=== PATIENT | female | born 2000 | race Caucasian/White ===

== ENCOUNTER 2023-01-13 15:05 | Inpatient (IN) | payer BC ==
[~2023-01-13] VITALS: Ht 167.6 cm; Wt 97.7 kg
[2023-01-15] VITALS (8 sets, daily range): BP systolic 115–133; BP diastolic 63–77; PULSE 81–116; TEMP 98.6
--- NOTE | 2023-01-15 19:30 | NUR ---
PT ABULATED TO ROOM WITH . APPEARS COMFORTABLE, PLEASANT BUT ANXIOUS. PT FAMILIARIZED WITH ROOM, WATER PROVIDED AND ALL QUESTIONS ANSWERED AT THE BEDSIDE BY THIS RN. PT HAS NO COMPLAINTS OF PN AT THIS TIME, ADMITS TO BEING NERVOUS BUT EXCITED. NO VAGINAL BLEEDING OR LEAKING OF FLUIDS. ASSESESMENT AND CONSENTS SIGNED AT THIS TIME. DICUSSION OF PLAN OF CARE WITH PT AND COMPLETED. CALL LIGHT LEFT WITHIN REACH.
--- NOTE | 2023-01-15 19:45 | NUR ---
PT DISCUSSING PLAN AND REQUESTS TO KEEP PLACENTA TO ENCAPSULATE. THIS RN EDUCATED PT ABOUT HER GBS POSTIVE RESULT AND THE POSSIBILITY OF THE PLACENTA BEING INFECTED AND ENCOURAGED HER TO SPEAK TO HER DELIVERY DOCTOR FOR FURTHER TEACHING TO MAKE A WELL EDUCATED DECISION ON CONSUMPTION.
[2023-01-15] MEDS ORDERED: PREDNISONE20 MG PO (20:37)
[2023-01-15] MEDS ORDERED: KUVAN PO (20:40)
[2023-01-15 21:06] LABS: BASO % 0.2 % (0.0-2.0); EOS % 0.1 % (0.0-4.0); GRAN # 9.8 K/mm3 (1.4-6.5); GRAN % 81.1 % (42.2-75.2); HEMATOCRIT 39.3 % (37.0-47.0); LYMPH # 1.3 K/mm3 (1.2-3.4); LYMPH % 10.9 % (20.0-51.0); MEAN CELL VOLUME 90 fl (80.0-100.0); MEAN CORPUSCULAR HEMOGLOBIN 32 pg (27-31); MEAN CORPUSCULAR HGB CONC 36 g/dl (33.0-37.0); MEAN PLATELET VOLUME 12.2 fl (7.4-10.4); MONO # 0.8 K/mm3 (0.1-0.6); MONO % 6.5 % (1.7-9.3); PLATELET COUNT 148 K/mm3 (130-400); RED BLOOD COUNT 4.35 M/mm3 (4.10-5.30); REDCELL DISTRIBUTION WIDTH-CV 12.7 % (11.5-14.5)
--- NOTE | 2023-01-15 22:02 | NUR ---
DR. MUNOZ CALLED AT 1957. DICUSSED PT HX, STABLE VITAL SIGNS, FHT, CTX AND SVE. ORDERS RECIEVED TO START INDUCTION.
--- NOTE | 2023-01-15 23:46 | NUR ---
CYTOTEC PLACED VAGINALLY AFTER SVE AT 2240.
[2023-01-16] VITALS (50 sets, daily range): BP systolic 108–162; BP diastolic 59–88; PULSE 74–123; TEMP 97.8–98
--- NOTE | 2023-01-16 02:50 | NUR ---
PT UP TO RESTROOM, STEADY GAIT. SVE DONE BEFORE ADMINISTRATION OF SECOND DOSE OF CYTOTEC. FHT AND CTX WITHIN NORMAL LIMITS. CYTOTEC PLACED AT 0251. WILL CONTINUE TO MONITOR.
--- NOTE | 2023-01-16 06:45 | NUR ---
PT OFF MONITOR, EATING BREAKFAST AND AMBULATING BEFORE STARTING PITOCIN AT 0730
--- NOTE | 2023-01-16 08:40 | NUR ---
0820 DR MUNOZ IN ROOM. SVE AT THIS TIME. DR MUNOZ DISCUSSES OPTION OF CERVICAL RIPENING BALLOON WITH PT. PT AGREES WITH PLAN OF CARE. 0828 THIS RN, DR MUNOZ AND A ALEX RN AT BEDSIDE. PT REPOSITIONED IN [place]NER. 0830 CERVICAL RIPENING BALLOON PLACED. 80CC IN UTERINE BALLOON. 40CC IN VAGINAL BALLOON. PT REPOSITIONED. PLAN OF CARE DISCUSSED. PT VERBALIZES UNDERSTANDING. CALL LIGHT WITHIN REACH. 0835 DR MUNOZ OFF UNIT.
--- NOTE | 2023-01-16 10:57 | NUR ---
PT SWITCHED OVER TO WIRELESS FHR MONITOR. PT DESIRES TO AMBULATE UNIT.
--- NOTE | 2023-01-16 12:57 | NUR ---
1245 DR MUNOZ ON UNIT. 1250 DR MUNOZ AT PT'S BEDSIDE. 1252 SVE. 40CC ADDED TO VAGINAL BALLOON. 1257 DR MUNOZ OFF UNIT.
--- NOTE | 2023-01-16 18:17 | NUR ---
DR MUNOZ, THIS RN AND JEANETTE (TRAVELER) RN AT PT'S BEDSIDE. THIS RN GIVES JEANETTE REPORT.
--- NOTE | 2023-01-16 18:20 | NUR ---
SHIFT CHANGE. BEDSIDE REPORT RECEIVED FROM SAIGE BONILLA. DR MUNOZ AT BEDSIDE TO CHECK PT CERVIX, CRESPO BULB OUT AT 1820 FOLLOWED BY SVE AND AROM AT 182. IUPC PLACED BY DR MUNOZ AT 1832. LARGE AMOUNTS OF CLEAR FLUID WITH BLOODY SHOW AFTER AROM.
--- NOTE | 2023-01-16 22:16 | NUR ---
DR MUNOZ CALLED AND UPDATED ON PT SVE, FHT WITH EARLY DECELS, CTX PATTERN AND PITOCIN SETTINGS. NO NEW ORDERS. WILL CONTINUE TO MONITOR.
[2023-01-17] VITALS (24 sets, daily range): BP systolic 12–145; BP diastolic 57–96; PULSE 77–120; TEMP 97.9–98.3
--- NOTE | 2023-01-17 00:45 | NUR ---
DR. MUNOZ CALLED AND UPDATED ON PT HAVING LATE DECELS AND VARIABLES. UPDATED SVE AND CTX PATTERN. MD STATED HE WILL REVIEW STRIP AND COME TO BEDSIDE TO ASSESS.
--- NOTE | 2023-01-17 05:26 | NUR ---
OF BABY GIRL AT 0259. DELAYED CORD CLAMPING AND SKIN TO SKIN PROVIDED IMMEDIATELY AFTER DELIVERY. FOB CUT THE CORD. NURSERY NURSE, RENEE ORDOÑEZ, AT BEDSIDE FOR CARE OF . PLACENTA DELIVERED SPONTANEOUSLY [id number]. PARENTS REQUEST TO KEEP PLACENTA. MD APPROVED. FIRST DEGREE TEAR REPAIRED BY DR MUNOZ. CYTOTEC RECTALLY ADMINISTERED BY AT 0311. RECOVERY STARTED AT 0330.
--- NOTE | 2023-01-17 06:30 | NUR ---
PT STANDBY ASSIST TO BATHROOM. PT VOIDS 700CC. PERICARE DONE. CLEAN PAD, UNDERWEAR AND ICE PACK PAD PLACED. PT AMBULATES TO ROOM 215.
--- NOTE | 2023-01-17 06:35 | NUR ---
THIS RN RECEIVES REPORT FROM JEANETTE CASTILLO RN
--- NOTE | 2023-01-17 10:45 | NUR ---
THIS RN WITNESSES PT'S VERBAL CONSENT FOR PLACENTA TO BE TAKEN OFF UNIT SO SHE CAN ENCAPSULATE IT. DR MUNOZ AND THIS RN COUNSELED PT ABOUT GBS CARRYING OVER INTO PLACENTA. PT VERBALIZES UNDERSTANDING.
--- NOTE | 2023-01-17 16:53 | NUR ---
PT REPORTS LAST FULL FEED WAS "THIS MORNING". AT BREAST AT THIS TIME. INTERMITTENT LATCH, APPROPRIATE. PROPER SUCK NOTED. PT STATES "SHE MAYBE ATE FOR 5 MINUTES TOTAL AROUND 3:20. BUT NOT MUCH SINCE THEN." AT BREAST DURING EACH ENCOUNTER THIS NURSE HAS HAD WITH PATIENT FOR SHORT INTERMITTENT FEEDS. Q5MIN APPROXIMATELY EACH FEED.
--- NOTE | 2023-01-17 19:27 | NUR ---
PT APPEARS COMFORTABLE, SITTING IN WINDOW SEAT. AT BEDSIDE HOLDING . NO COMPLAINTS OF PN AT THIS TIME, LOCHIA WNL, ALL VSS. ICE PACK PROVIDED AND CALL LIGHT WITHIN REACH.
[2023-01-18 00:45] VITALS: BP 137/82; PULSE 88; TEMP 97.7
[2023-01-18 07:30] VITALS: BP 117/67; PULSE 79; TEMP 98.4
[2023-01-18] MEDS ORDERED: IBU600 MG PO (09:19)
[2023-01-18] MEDS ORDERED: MEDROL 4MG DOSPA4 MG PO (09:20)
--- NOTE | 2023-01-18 09:34 | NUR ---
PT IS RUBELLA NON-IMMUNE, REFUSING MMR VACCINE AT THIS TIME. REFUSAL PAPERWORK SIGNED.
--- NOTE | 2023-01-18 09:46 | NUR ---
Initial visit; Parents thanked Body Trimmer Upholsterer for offering congratulations and God's blessings for the of their daughter. Body Trimmer Upholsterer thanked family for choosing [facility].
[2023-01-18 11:29] VITALS: BP 126/73; PULSE 92; TEMP 97.6
--- NOTE | 2023-01-18 12:31 | NUR ---
INFANTS BILIRUBIN ELEVATED THIS AM @ 10.8. INFANT STRUGGLING WITH , FRANTIC AND STRESSED AT BREATH WITH MULTIPLE ATTEMPTS WITH STAFF AT BEDSIDE. CURRENT FEEDING PLAN IS TO ATTEMPT BREAST, TOP OFF WITH BOTTLE, AND PUMP IF INFANT DOES NOT SECURE AN APPROPRIATE LATCH. INFANT TOLERATING FEEDS WELL. CONTENT. HAVING MULTIPLE BOWEL MOVEMENTS. WILL REPEAT BILIRUBIN AT 1500 PER AND CALL WITH RESULTS.
--- NOTE | 2023-01-18 13:32 | NUR ---
1230 THIS HUB BORER ASSUMES CARE OF PATEINT FROM MELANIE OG RN.
[2023-01-18 16:37] VITALS: BP 134/75; PULSE 101; TEMP 98.8
== END 2023-01-18 17:42 | disposition home or self-care (01) | DRG 768 ==
LOC: OB 01-15 15:04 → LDR 01-15 18:59 → OB 01-15 18:59
PROVIDERS: ADMIT Obstetrics & Gynecology
PROC: 10E0XZZ Delivery of Products of Conception, External Approach (ICD-10-PCS; principal; 2023-01-17)
PROC: 0UQJXZZ Repair Clitoris, External Approach (ICD-10-PCS; 2023-01-17)
PROC: 0HQ9XZZ Repair Perineum Skin, External Approach (ICD-10-PCS; 2023-01-17)
DX: O48.0 Post-term pregnancy (principal); Z37.0 Single live birth; O99.12 Other diseases of the blood and blood-forming organs and certain disorders involving the immune mechanism complicating childbirth; E70.1 Other hyperphenylalaninemias; Z3A.40 40 weeks gestation of pregnancy; D69.6 Thrombocytopenia, unspecified; O99.824 Streptococcus B carrier state complicating childbirth; O99.284 Endocrine, nutritional and metabolic diseases complicating childbirth; O69.81X0 Labor and delivery complicated by cord around neck, without compression, not applicable or unspecified; O76 Abnormality in fetal heart rate and rhythm complicating labor and delivery; O70.0 First degree perineal laceration during delivery; O71.89 Other specified obstetric trauma
CPT/HCPCS: J2540; J2590; J2795; J7120; J7509